=== PATIENT | female | born 1980 | race Caucasian/White ===

== ENCOUNTER 2021-08-08 19:16 | Emergency (ER) | payer OTHER, SELFPAY ==
[2021-08-08 19:25] VITALS: BP 120/99; PULSE 82; RESP 16; TEMP 36.6; O2SAT 100
--- NOTE | 2021-08-08 19:35 | ED.FEMALEGU ---
HPI - Female Genitourinary General Chief complaint: Urogenital-Female Stated complaint: vaginal discharge Source: patient and RN notes reviewed Limitations: no limitations History of Present Illness HPI Narrative: The patient, previously mostly healthy, presents with vaginal discharge. Patient states she has a 1 week history of vaginal discharge, like prior bacterial vaginosis for which she wants med refill. No fever, rash, vomiting/diarrhea, frequency/urgency, abdominal pain but she does mention some dysuria. She declines pelvic exam, STD testing [as younger son is with her]. Related Data Home Medications Medication Instructions Recorded Confirmed No Home Medications 08/08/21 08/08/21 Allergies Allergy/AdvReac Type Severity Reaction Status Date / Time No Known Allergies Allergy Verified 08/08/21 19:24 Review of Systems Review of Systems: The patient has been informed that they may have pre-hypertension or Hypertension based on a BP reading in the department. I recommend that the patient call the primary care provider listed on their discharge instructions or a physician of their choice this week to arrange follow up for further evaluation of possible pre-hypertension or Hypertension General/Constitutional: No weight loss,fever Eyes: N0: Redness,discharge Ears/Nose/Throat: No: Epistaxis,ear discharge Respiratory: Denies: Hemoptysis Gastrointestinal: No Vomiting, Bleeding-rectal Skin: No Lumps, eruption Neurologic: No Focal Weakness,Sz Hematologic: Denies: Petechiae/Purpura Psychiatric: No: Suicida ideationl All Other Systems: Reviewed and Negative [facility] Past Medical History Medical History (Updated 08/08/21 @ 19:36 by Chris Oneil MD) Factor V Leiden Surgical History Surgical History (Updated 10/04/19 @ 21:28 by Servando Garcia) Surgical history unknown Social History Social History (Updated 10/04/19 @ 21:32 by Servando Garcia) Smoking status: Unknown if ever smoked Gender identity (if verbalized by the patient): Female Comments At time of signature, agree with nursing past medical, surgical, social and family history. There is no relevant family history pertinent to the presenting complaint Exam Narrative: General Appearance: Well appearing, Conjunctiva clear Ears: External ear normal Nose: Normal nose Mouth/Throat: Normal appearing, Normal lips, Supple Respiratory: Airway patent, No respiratory distress Cardiovascular: RRR Abdomen: Soft, Non-tender, Musculoskeletal: Full ROM Skin: Warm, Dry Neurological: A&O x3, Normal affect Course Vital Signs Vital signs: Vital Signs Temperature 97.8 F 08/08/21 19:25 Pulse Rate 82 08/08/21 19:25 Respiratory Rate 16 08/08/21 19:25 Blood Pressure 120/99 H 08/08/21 19:25 Pulse Oximetry 100 08/08/21 19:25 Temperature 97.8 F 08/08/21 19:25 Pulse Rate 82 08/08/21 19:25 Respiratory Rate 16 08/08/21 19:25 Blood Pressure 120/99 H 08/08/21 19:25 Pulse Oximetry 100 08/08/21 19:25 MDM - Female Genitourinary Lab Data Labs: Urine Glucose Negative Reference Range: Negative Urine Bilirubin 1+ Reference Range: Negative Urine Ketone Negative Reference Range: Negative Urine Specific [place] 1.030 Reference Range:1.001-1.035 Urine Blood Trace Reference Range: Negative * * Urine pH 5.5 Reference Range: 5.0-9.0 Urine Protein Negative Reference Range: Negative [place]
== END 2021-08-08 19:44 | disposition home or self-care (01) ==
PROVIDERS: Emergency Provider Emergency Medicine
DX: N76.0 Acute vaginitis (principal); D68.51 Activated protein C resistance
CPT/HCPCS: 81003; 87086; 99213; G0463